=== PATIENT | female | born 1950 | race Caucasian/White ===

== ENCOUNTER 2021-03-01 11:47 | Outpatient (REF) | payer MEDICARE, SELFPAY ==
[2021-03-04 21:12] LABS: Acetylcholine Recept. Blocking <15 (<15)
[2021-03-04 23:37] LABS: Acetylcholine Receptor Binding <0.30 nmol/L
[2021-03-08 23:02] LABS: Acetylcholine Recep Modulating 28
== END 2021-03-01 11:48 | disposition home or self-care (01) ==
LOC: HO.LAB 11:47
PROVIDERS: PCP Internal Medicine; Visit Provider Psychiatry & Neurology Neurology
DX: G90.2 Horner's syndrome (principal)
CPT/HCPCS: 36415; 83519

== ENCOUNTER 2021-04-19 10:40 | Outpatient (REF) | payer MEDICARE, SELFPAY ==
[2021-04-19 11:25] LABS: Blood Urea Nitrogen 15 mg/dL (9-16); Estimated Glomerular Filt Rate 56
== END 2021-04-19 10:41 | disposition home or self-care (01) ==
LOC: HO.LAB 10:40
PROVIDERS: PCP Internal Medicine; Visit Provider Psychiatry & Neurology Neurology
DX: G90.2 Horner's syndrome (principal)
CPT/HCPCS: 36415; 82565; 84520

== ENCOUNTER 2021-04-26 10:25 | Outpatient (REF) | payer MEDICARE, SELFPAY ==
--- NOTE | ~2021-04-26 | CT_ITS ---
EXAMINATION: CT CHEST WITH CONTRAST CLINICAL INFORMATION: Teresa syndrome. COMPARISON: None TECHNIQUE: Multidetector volumetric CT imaging of the chest was obtained after the administration of 65 mL of Omnipaque 350 intravenous contrast without immediate adverse reactions. Axial MIP volume rendering provided. Sagittal and coronal reformatted images were obtained. This CT examination was performed using dose optimization techniques as appropriate, variously including the following: *Automated exposure control *Adjustment of mA and/or kV according to patient size (this includes techniques or standardized protocols for targeted exams where dose is matched to indication/reason for exam; i.e. extremities or head) *Use of iterative reconstruction technique DLP: 104 mGy-cm FINDINGS: LUNGS: There is mild biapical pleural and parenchymal scarring. There is a 2 mm peripheral right upper lobe nodule (axial image 85, series 5). MEDIASTINUM: The thoracic aorta is slightly tortuous and upper normal in size. The heart does not appear enlarged. There is trace pericardial effusion. There are no enlarged hilar or mediastinal lymph nodes. PLEURA: There is no pleural effusion. No pleural mass or thickening. AXILLAE: There is a 1 cm asymmetric density seen in the central right upper breast. Correlation with physical exam and mammogram recommended. There are no enlarged axillary lymph nodes. UPPER ABDOMEN: There is a 5 x 7 mm low-attenuation lesion high in the right lobe of the liver (axial image 185, series 5). This is difficult to characterize due to small size. OSSEOUS STRUCTURES: There is mild scoliosis and degenerative changes of the spine. CT/CT chest w con IMPRESSION: Small 2 mm right upper lobe pulmonary nodule. Trace pericardial effusion. Upper normal size, slightly tortuous thoracic aorta. 1 cm asymmetric density in the right breast. Correlation with physical exam and mammogram recommended. Fleischner guidelines were followed.
== END 2021-04-26 10:26 | disposition home or self-care (01) ==
LOC: HO.CT 10:25
PROVIDERS: PCP Internal Medicine; Visit Provider Psychiatry & Neurology Neurology
DX: G90.2 Horner's syndrome (principal)
CPT/HCPCS: 71260

== ENCOUNTER 2023-04-23 09:21 | Emergency (ER) | payer MEDICARE, OTHER, SELFPAY ==
[2023-04-23 09:29] VITALS: BP 156/93; PULSE 75; RESP 20; TEMP 36.7; O2SAT 100; BMI 22.0
== END 2023-04-23 15:58 | disposition left against medical advice (07) ==
PROVIDERS: Emergency Provider Emergency Medicine; PCP Internal Medicine
DX: U07.1 COVID-19 (principal); J02.8 Acute pharyngitis due to other specified organisms; R05.9 Cough, unspecified
CPT/HCPCS: 99281